=== PATIENT | male | born 1955 | race Caucasian/White ===

== ENCOUNTER 2021-11-23 21:48 | Emergency (ER) | payer MEDICARE, SELFPAY ==
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
[2021-11-23 21:48] VITALS: BP 149/80; PULSE 83; RESP 16; TEMP 36.2; O2SAT 97
[2021-11-23 22:56] VITALS: BP 134/82; PULSE 85; RESP 13; O2SAT 95
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
--- NOTE | 2021-11-23 22:58 | ECG_ITS ---
Measurements Intervals [place] Rate: 85 P: 43 WI: 234 QRS: 6 QRSD: 117 T: 19 QT: 361 QTc: 429 Interpretive Statements SINUS RHYTHM WITH FIRST DEGREE AV BLOCK LOW QRS VOLTAGE IN PRECORDIAL LEADS [QRS DEFLECTION < 1.0 mV IN CHEST LEADS] INCOMPLETE RIGHT BUNDLE BRANCH BLOCK [90+ ms QRS DURATION, TERMINAL R IN V1/V2, 40+ ms S IN I/aVL/V4/V5/V6] NO PREVIOUS ECG AVAILABLE FOR COMPARISON Electronically Signed On 11-24-2021 7:21:19 CDT by Catrachito Flowers M.D.
[2021-11-23 23:54] LABS: Anion Gap 14 mmol/L (8-16); Blood Urea Nitrogen 14 mg/dL (9-20); Calcium 9.3 mg/dL (8.4-10.2); Carbon Dioxide 25 mmol/L (22-30); Chloride 100 mmol/L (98-107); Estimated CRCL calculation 78 ml/min; Estimated Glomerular Filt Rate > 60; Glucose 199 mg/dL (65-110); Potassium 4.3 mmol/L (3.4-5.0); Sodium 139 mmol/L (137-145)
[2021-11-24 00:20] LABS: Appearance Urine Clear (Clear); Bilirubin Urine Negative (Negative); Blood Urine 2+ (Negative); Color Urine Yellow (Yellow); Glucose Urine UA Trace mg/dL (Negative); Ketones Urine Negative (Negative); Leukocyte Esterase Ur Negative LEU/UL (Negative); Nitrate Urine Negative (Negative); Protein Urine 3+ mg/dL (Negative); Specific Grav Ur >= 1.030 (1.001-1.035); Urobilinogen Urine 0.2 mg/dL (<2.0)
[2021-11-24 00:30] LABS: Mucus Urine Rare /lpf; Squamous Epithelial Cell Urine Rare /hpf (Few)
[2021-11-24 00:31] LABS: Add Urine Microscopic? YES
[2021-11-24 01:58] VITALS: BP 163/80; PULSE 95; RESP 20; O2SAT 97
[2021-11-24 02:49] VITALS: BP 170/85; PULSE 81; RESP 18; O2SAT 98
[2021-11-24 04:23] VITALS: BP 162/82; PULSE 90; RESP 15; O2SAT 97
--- NOTE | 2021-11-24 04:23 | PC.NURSE ---
C Collar removed by EDP following neg imaging.
[2021-11-24] MEDS: HYDROcodone/acetaminophen (*CRX) 5-325 MG TABLET 1 TAB PO (04:36)
--- NOTE | 2021-11-24 15:42 | ED.PROGRESS ---
Subjective Date/time seen: 11/24/21 15:42 I never saw this patient; received call from Dr. Bahena radiology that he noted a 6mm lung nodule that was not noted on overnight read. I did therefore call the number for Mr Nadeem listed on his chart, however the call could not go through to his number; I therefore called the next number listed for his , and she did not picking supervisor; i did leave a voicemail regarding abnormal radiology finding and asked her to call back for further questions/discussion. Objective Data Vital Signs Vital Signs: Vital Signs - 24 hr 11/23/21 21:48 11/23/21 22:56 11/24/21 01:58 Temperature 97.2 F L Pulse Rate 83 85 95 Respiratory Rate 16 13 20 Blood Pressure 149/80 H 134/82 163/80 H Pulse Oximetry 97 95 97 Oxygen Delivery Room Air 11/24/21 02:49 11/24/21 04:23 Temperature Pulse Rate 81 90 Respiratory Rate 18 15 Blood Pressure 170/85 H 162/82 H Pulse Oximetry 98 97 Oxygen Delivery Intake/Output Intake/Output: Intake & Output 11/21/21 11/22/21 11/23/21 11/24/21 23:59 23:59 23:59 23:59 Output Total 300 Balance -300 Meds/Results Radiology Results: ITS Impressions Head CT 11/24/21 13:49 IMPRESSION: Cerebral atherosclerosis No skull fracture or acute intracranial abnormality Cervical Spine CT 11/24/21 15:01 IMPRESSION: Straightening of cervical spine, which may be due to muscle spasm. Degenerative changes; no fracture or dislocation Chest/Abdomen/Pelvis CT 11/24/21 15:06 IMPRESSION: 6 mm middle lobe nodular densities; recommend comparison with prior CT examinations dating back 2 or more years if available. If not available or if this is a new or enlarged opacity, [address] thorax follow-up is recommended depending upon risk factors Mild discoid atelectasis or scarring at the lingula and mild infiltrate and/atelectasis, left lower lobe. Minimal dependent right lower lobe atelectasis Pinpoint nonobstructing lower pole right renal calculus Bilateral renal cysts Dr. Bahena telephoned the emergency room physician Dr. Ken on 11/24/2021 at 1537 hours and recommended the [address] follow-up of the middle lobe nodule based upon risk factors. Labs Labs: Laboratory Results - last 24 hr 11/23/21 11/24/21 23:39 00:11 Sodium 139 Potassium 4.3 Chloride 100 Carbon Dioxide 25 Anion Gap 14 BUN 14 Creatinine 1.10 Estim Creat Clear Calc 78 Estimated GFR > 60 Glucose 199 H Calcium 9.3 Urine Color Yellow Urine Appearance Clear Urine pH 5.0 Ur Specific [place] >= 1.030 Urine Protein 3+ H Urine Glucose (UA) Trace H Urine Ketones Negative Ur Blood (Man) 2+ H Urine Nitrate Negative Urine Bilirubin Negative Urine Urobilinogen 0.2 Leukocyte Esterase Rfl Negative Urine RBC 3-5 H Urine WBC 4-6 H Ur Squamous Epith Cells Rare Hyaline Casts 1-2 Urine Mucus Rare
== END 2021-11-24 04:47 | disposition home or self-care (01) ==
PROVIDERS: Nurse Practitioner Family; Emergency Provider Emergency Medicine
DX: S32.039A Unspecified fracture of third lumbar vertebra, initial encounter for closed fracture (principal); S19.9XXA Unspecified injury of neck, initial encounter; S09.90XA Unspecified injury of head, initial encounter; S29.9XXA Unspecified injury of thorax, initial encounter; S39.91XA Unspecified injury of abdomen, initial encounter; I44.0 Atrioventricular block, first degree; I45.10 Unspecified right bundle-branch block; I67.2 Cerebral atherosclerosis; M48.02 Spinal stenosis, cervical region; N20.0 Calculus of kidney; N28.1 Cyst of kidney, acquired; R91.1 Solitary pulmonary nodule; V49.40XA Driver injured in collision with unspecified motor vehicles in traffic accident, initial encounter
CPT/HCPCS: 36415; 51701; 70450; 71260; 72125; 72131; 74177; 80048; 81001; 93005; 99284; A9270; Q9967